=== PATIENT | male | born 1990 | race Caucasian/White ===

== ENCOUNTER → 2017-09-23 | Outpatient (REF) | payer BC ==
[2017-09-23 20:41] LABS: APPEARANCE, URINE CLEAR (CLEAR); BACTERIA, URINE AUTO NEGATIVE (NEGATIVE); BILIRUBIN, URINE AUTO NEGATIVE (NEGATIVE); BLOOD, URINE BLOOD NEGATIVE (NEGATIVE); COLOR, URINE YELLOW (YELLOW); GLUCOSE, URINE (UA) AUTO NEGATIVE (NEGATIVE); KETONE, URINE AUTO NEGATIVE (NEGATIVE); LEUKOCYTE ESTERASE, URINE AUTO TRACE (NEGATIVE); NITRITE, URINE AUTO NEGATIVE (NEGATIVE); PROTEIN, URINE AUTO NEGATIVE (NEGATIVE); RBC, URINE AUTO 2 /HPF (0-3); SPECIFIC GRAVITY URINE AUTO 1.021 (1.002-1.035); SQUAMOUS EPITHELIAL CELL UR AU 0 /HPF (0-6); UROBILINOGEN, URINE AUTO 0.2 mg/dL (0.0-2.0); WBC, URINE AUTO 19 /HPF (0-3)
[2017-09-28 00:06] LABS: Lyme Disease IgG Ab 18 kDa Ban Absent (.); Lyme Disease IgG Ab 23 kDa Ban Absent (.); Lyme Disease IgG Ab 28 kDa Ban Absent (.); Lyme Disease IgG Ab 30 kDa Ban Absent (.); Lyme Disease IgG Ab 39 kDa Ban Absent (.); Lyme Disease IgG Ab 41 kDa Ban Absent (.); Lyme Disease IgG Ab 45 kDa Ban Absent (.); Lyme Disease IgG Ab 58 kDa Ban Present (.); Lyme Disease IgG Ab 66 kDa Ban Absent (.); Lyme Disease IgG Ab 93 kDa Ban Absent (.); Lyme Disease IgG West Blot Int Negative (.); Lyme Disease IgG/IgM Antibodie <0.91 ISR (0.00-0.90); Lyme Disease IgM Ab 23 kDa Ban Absent (.); Lyme Disease IgM Ab 39 kDa Ban Absent (.); Lyme Disease IgM Ab 41 kDa Ban Absent (.); Lyme Disease IgM Ab Quantitati 0.89 index (0.00-0.79); Lyme Disease IgM West Blot Int Negative (.)
== END ==
LOC: M LAB REF 17:20
DX: N39.0 Urinary tract infection, site not specified (principal)
CPT/HCPCS: 81001

== ENCOUNTER 2017-11-11 20:12 | Emergency (ER) | payer BC ==
[2017-11-11] MEDS: LIDOCAINE 1% MDV 20ML VIAL SC (20:42)
[2017-11-11] MEDS: ADACEL/BOOSTRIX VACCINE (DIPHTH/PERTUSS/ACELL/TETANUS)0.5ML SYR (90715) IM (21:15)
== END 2017-11-11 21:28 | disposition home or self-care (01) ==
LOC: M ED 20:12
DX: S61.412A Laceration without foreign body of left hand, initial encounter (principal); W26.0XXA Contact with knife, initial encounter; Y92.59 Other trade areas as the place of occurrence of the external cause; Y99.0 Civilian activity done for income or pay; F17.200 Nicotine dependence, unspecified, uncomplicated; Z79.899 Other long term (current) drug therapy
CPT/HCPCS: 90715

== ENCOUNTER 2017-12-27 14:24 | Emergency (ER) | payer OTHER, BC | END 2017-12-27 16:55 | disposition home or self-care (01) | LOC: M ED 14:24 | DX: S30.22XA Contusion of scrotum and testes, initial encounter (principal); W22.8XXA Striking against or struck by other objects, initial encounter; Y92.59 Other trade areas as the place of occurrence of the external cause; Y99.0 Civilian activity done for income or pay; J45.909 Unspecified asthma, uncomplicated; Z87.891 Personal history of nicotine dependence; Z87.438 Personal history of other diseases of male genital organs; Z79.899 Other long term (current) drug therapy | CPT/HCPCS: 76870 ==

== ENCOUNTER 2019-02-02 23:57 | Emergency (ER) | payer OTHER, BC ==
[~2019-02-02] VITALS: Ht 185.4 cm; Wt 77.3 kg
[~2019-02-02 23:57] MED LIST: NAPR-837 PO; ZANTTAB9 PO
[2019-02-03] MEDS ORDERED: CEPHALEXIN 500 MG CAP PO ONE (01:15)
[2019-02-03] MEDS ORDERED: LIDOCAINE 2% MDV 20 ML VIAL SC ONE (01:15)
[2019-02-03] MEDS ORDERED: KEFL500C17 PO (01:17)
[2019-02-03 01:18] VITALS: BP 109/65
== END 2019-02-03 01:38 | disposition home or self-care (01) ==
LOC: M ED 23:57
DX: S61.210A Laceration without foreign body of right index finger without damage to nail, initial encounter (principal); W26.8XXA Contact with other sharp object(s), not elsewhere classified, initial encounter; Y92.89 Other specified places as the place of occurrence of the external cause; Y99.0 Civilian activity done for income or pay

== ENCOUNTER 2019-09-23 03:22 | Emergency (ER) | payer BC, OTHER ==
[~2019-09-23] VITALS: Ht 185.4 cm; Wt 78.9 kg
[~2019-09-23 03:22] MED LIST changes: +KEFL500C17 PO
[2019-09-23] MEDS ORDERED: IBUP200T45 PO (03:29)
[2019-09-23 04:21] LABS: INFLUENZA A AMPLIFICATION NEGATIVE (NEGATIVE); INFLUENZA B AMPLIFICATION NEGATIVE (NEGATIVE)
[2019-09-23] MEDS ORDERED: KEFL500C17 PO (07:24)
[2019-09-23 08:02] VITALS: BP 128/71
== END 2019-09-23 08:03 | disposition home or self-care (01) ==
LOC: M ED 03:22
DX: J02.9 Acute pharyngitis, unspecified (principal); R50.9 Fever, unspecified; M79.10 Myalgia, unspecified site; F17.210 Nicotine dependence, cigarettes, uncomplicated

== ENCOUNTER 2019-10-09 20:58 | Emergency (ER) | payer BC, SELFPAY ==
[~2019-10-09] VITALS: Ht 185.4 cm; Wt 81.8 kg
[~2019-10-09 20:58] MED LIST changes: +IBUP200T45 PO
[2019-10-09 22:03] LABS: BASO # 0.1 10^3/uL (0.0-0.2); BASO % 0.3 % (0.0-1.0); EOS # 0.2 10^3/uL (0.0-0.5); EOS % 1.3 % (0.0-3.0); HEMATOCRIT 40.6 % (42.0-52.0); LYMPH # 2.2 10^3/uL (1.5-5.0); LYMPH % 14.3 % (24.0-44.0); MEAN CORPUSCULAR HEMOGLOBIN 28.4 pg (27.0-33.0); MEAN CORPUSCULAR VOLUME 88.8 fl (80.0-96.0); MONO # 0.9 10^3/uL (0.0-0.8); MONO % 5.9 % (0.0-5.0); NEUTROPHILS # 11.7 10^3/uL (1.5-8.5); NEUTROPHILS % 77.6 % (36.0-66.0); PLATELET COUNT, AUTOMATED 355 10^3/uL (150-450); RED BLOOD COUNT 4.57 10^6/uL (4.30-6.10); WHITE BLOOD COUNT 15.1 10^3/uL (4.0-10.0)
[2019-10-09 22:25] LABS: ERYTHROCYTE SEDIMENTATION RATE 44 mm/hr (0-15)
[2019-10-09 22:27] LABS: BLOOD UREA NITROGEN 17 MG/DL (7-18); CALCIUM LEVEL 9.3 MG/DL (8.5-10.1); CARBON DIOXIDE LEVEL 32 MEQ/L (21-32); CHLORIDE LEVEL 107 MEQ/L (98-107); CREATININE FOR GFR 1.12 MG/DL (0.70-1.30); GLOMERULAR FILTRATION RATE > 60.0 (>60); GLUCOSE, FASTING 83 MG/DL (70-100); POTASSIUM SERUM 4.2 MEQ/L (3.5-5.1); SODIUM LEVEL 143 MEQ/L (136-145)
[2019-10-09 22:30] LABS: MONO REFLEX EBV COMP NEGATIVE (NEGATIVE)
[2019-10-09] MEDS ORDERED: ISOVUE-370 76% 100ML VIAL (Q9967) As Ordered ONE (22:38)
--- NOTE | 2019-10-09 23:52 | REPVR ---
PROCEDURE INFORMATION: Exam: CT Neck With Contrast Exam date and time: 10/09/2019 10:26 PM Age: 29 years old Clinical indication: Throat pain; Additional info: Swelling to right upper neck, pain x2 weeks TECHNIQUE: Imaging protocol: Computed tomography images of the neck with intravenous contrast. Radiation optimization: All CT scans at this facility use at least one of these dose optimization techniques: automated exposure control; mA and/or kV adjustment per patient size (includes targeted exams where dose is matched to clinical indication); or iterative reconstruction. Contrast material: ISO; Contrast volume: 75 ml; Contrast route: AC; COMPARISON: No relevant prior studies available. FINDINGS: Limitations: Dental amalgam artifact obscures the oral cavity and oral pharynx. Nasopharynx: Unremarkable. Oropharynx: [place] tonsillar enlargement with mild striated enhancement, correlate for tonsillitis. Couple low attenuating areas in the tonsils, larger measuring 7 mm in the anterior right tonsil, phlegmon, but no well-circumscribed rim enhancing fluid collection/abscess. Hypopharynx: Unremarkable Larynx: Unremarkable. Normal epiglottis. Retropharyngeal space: Unremarkable. Submandibular/Parotid glands: Normal. Glands are normal in size. Thyroid: Normal. No enlarged or calcified nodules. Lymph nodes: Mild upper cervical adenopathy, likely reactive. Trachea: Visualized trachea is unremarkable. Lungs: Unremarkable as visualized. Bones/joints: Unremarkable. No acute fracture. Soft tissues: Unremarkable. No significant soft tissue swelling. IMPRESSION: 1. [place] tonsillar enlargement with mild striated enhancement, correlate for tonsillitis. Couple low attenuating areas in the tonsils, larger measuring 7 mm in the anterior right tonsil, phlegmon, but no well-circumscribed rim enhancing fluid collection/abscess. 2. Mild upper cervical adenopathy, likely reactive. Electronically signed by: Chris Ronquillo On 10/09/2019 23:51:42 PM
[2019-10-10] MEDS ORDERED: AUGM875T28 PO (00:16)
[2019-10-10 00:27] VITALS: BP 143/99
[2019-10-10] MEDS ORDERED: AUGMENTIN 875 MG TAB PO ONE (00:30)
--- NOTE | 2019-10-11 19:10 | ED PDOC ---
Post-Departure Follow-Up dr ha faxed formal report of ct neck for fu Charlie Lora MD Oct 11, 2019 19:10
[2019-10-12 00:08] LABS: EBV VIRAL CAPSID AG IgM <36.0 U/mL (0.0-35.9)
== END 2019-10-10 00:30 | disposition home or self-care (01) ==
LOC: M ED 20:58
DX: J03.90 Acute tonsillitis, unspecified (principal); L04.0 Acute lymphadenitis of face, head and neck; F17.210 Nicotine dependence, cigarettes, uncomplicated
CPT/HCPCS: 36415; 70491; 80048; 85025; 85652; 86140; 86308; 86664; 86665; 87880; 99284; Q9967

== ENCOUNTER 2020-01-03 13:20 | Emergency (ER) | payer SELFPAY ==
[~2020-01-03] VITALS: Ht 185.4 cm; Wt 85.2 kg
[~2020-01-03 13:20] MED LIST changes: +AUGM875T28 PO
[2020-01-03] MEDS ORDERED: LIDOCAINE 2% MDV 20ML VIAL SC ONE (13:45)
[2020-01-03] MEDS ORDERED: CEPHALEXIN 500 MG CAP PO ONE (14:45)
[2020-01-03] MEDS ORDERED: NORCO, ANEXSIA 5/325MG TABLET (HYDROcodone/ACETAMINOPHEN) PO ONE (14:45)
[2020-01-03] MEDS ORDERED: KEFL500C17 PO (14:51)
[2020-01-03] MEDS ORDERED: NORC1TAB7 PO (14:51)
[2020-01-03 14:55] VITALS: BP 120/66
--- NOTE | 2020-01-03 15:46 | REP ---
REASON: Trauma to the tip of the right hand, 3rd digit. There has been traumatic amputation of the soft tissue of the tip of the 3rd digit and some of the tuft of the distal phalanx of that digit has also been traumatically removed. 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 Electronically Signed by Sammy Ray DO 01/03/2020 04:31 P
== END 2020-01-03 15:05 | disposition home or self-care (01) ==
LOC: M ED 13:20
DX: S68.122A Partial traumatic metacarpophalangeal amputation of right middle finger, initial encounter (principal); W28.XXXA Contact with powered lawn mower, initial encounter; Y92.007 Garden or yard of unspecified non-institutional (private) residence as the place of occurrence of the external cause; J45.909 Unspecified asthma, uncomplicated

== ENCOUNTER 2023-04-27 19:19 | Emergency (ER) | payer BC, OTHER ==
[~2023-04-27] VITALS: Ht 185.4 cm; Wt 79.8 kg
[~2023-04-27 19:19] MED LIST changes: -IBUP200T45 PO; +IBUP200T46 PO; +NORC1TAB7 PO
[2023-04-27] MEDS ORDERED: KETOROLAC 30 MG/ML 1ML VIAL IV ONE (23:00)
[2023-04-27 23:42] LABS: BASO # 0.1 10^3/uL (0.0-0.2); BASO % 0.7 % (0.0-1.0); EOS # 0.1 10^3/uL (0.0-0.5); EOS % 0.9 % (0.0-3.0); HEMATOCRIT 43.6 % (42.0-52.0); HEMOGLOBIN 14.9 g/dl (13.5-17.5); MEAN CORPUSCULAR HEMOGLOBIN 29.9 pg (27.0-33.0); MEAN CORPUSCULAR HGB CONC 34.2 g/dl (32.0-36.5); MEAN CORPUSCULAR VOLUME 87.4 fl (80.0-96.0); MONO # 0.5 10^3/uL (0.0-0.8); NEUTROPHILS # 3.8 10^3/uL (1.5-8.5); NEUTROPHILS % 51.1 % (36.0-66.0); PLATELET COUNT, AUTOMATED 305 10^3/uL (150-450); RED BLOOD COUNT 4.99 10^6/uL (4.30-6.10); WHITE BLOOD COUNT 7.5 10^3/uL (4.0-10.0)
[2023-04-27 23:57] LABS: BLOOD UREA NITROGEN 22 MG/DL (9-23); CALCIUM LEVEL 10.4 MG/DL (8.5-10.1); CARBON DIOXIDE LEVEL 32 MMOL/L (20-31); CHLORIDE LEVEL 100 MMOL/L (98-107); CREATININE FOR GFR 1.17 MG/DL (0.70-1.30); GLOMERULAR FILTRATION RATE > 60.0 (>60); GLUCOSE, FASTING 92 MG/DL (60-100); POTASSIUM SERUM 3.9 MMOL/L (3.5-5.1); SODIUM LEVEL 139 MMOL/L (136-145)
[2023-04-28] MEDS ORDERED: NORCO, ANEXSIA 5/325MG TABLET (HYDROcodone/ACETAMINOPHEN) PO ONE (00:20)
[2023-04-28 00:52] LABS: GC DNA AMPLIFICATION NEGATIVE (NEGATIVE)
[2023-04-28] MEDS ORDERED: KETO10TAB PO (01:22)
[2023-04-28 01:29] VITALS: BP 124/79; TEMP 96.7; O2SAT 99
== END 2023-04-28 01:31 | disposition home or self-care (01) ==
LOC: M ED 19:19
DX: N50.811 Right testicular pain (principal); I86.1 Scrotal varices; J45.909 Unspecified asthma, uncomplicated; Z87.891 Personal history of nicotine dependence
CPT/HCPCS: 74176; 76870; 80048; 81001; 85025; 87810; 87850; 96374; 99284; J1885

== ENCOUNTER 2023-08-25 20:56 | Emergency (ER) | payer BC ==
[~2023-08-25] VITALS: Ht 185.4 cm; Wt 85.1 kg
[~2023-08-25 20:56] MED LIST changes: +KETO10TAB PO
[2023-08-25 21:38] LABS: BASO # 0.1 10^3/uL (0.0-0.2); EOS # 0.2 10^3/uL (0.0-0.5); EOS % 2.8 % (0.0-3.0); HEMATOCRIT 42.7 % (42.0-52.0); HEMOGLOBIN 14.4 g/dl (13.5-17.5); LYMPH % 28.2 % (24.0-44.0); MEAN CORPUSCULAR HEMOGLOBIN 29.2 pg (27.0-33.0); MEAN CORPUSCULAR HGB CONC 33.7 g/dl (32.0-36.5); MEAN CORPUSCULAR VOLUME 86.6 fl (80.0-96.0); MONO # 0.5 10^3/uL (0.0-0.8); MONO % 6.6 % (2.0-8.0); NEUTROPHILS # 4.3 10^3/uL (1.5-8.5); NEUTROPHILS % 61.1 % (36.0-66.0); PLATELET COUNT, AUTOMATED 364 10^3/uL (150-450); RED BLOOD COUNT 4.93 10^6/uL (4.30-6.10); WHITE BLOOD COUNT 7.1 10^3/uL (4.0-10.0)
[2023-08-25 21:58] LABS: LIPASE 27 U/L (12-53)
[2023-08-25 21:59] LABS: ALBUMIN 4.3 G/DL (3.2-5.2); ALKALINE PHOSPHATASE 138 U/L (46-116); ALT/SGPT 77 U/L (7.0-40); AST/SGOT 33 U/L (<34); BILIRUBIN,DIRECT 0.2 MG/DL (<0.4); BILIRUBIN,TOTAL 0.5 MG/DL (0.3-1.2); BLOOD UREA NITROGEN 17 MG/DL (9-23); CALCIUM LEVEL 9.7 MG/DL (8.5-10.1); CARBON DIOXIDE LEVEL 31 MMOL/L (20-31); CHLORIDE LEVEL 106 MMOL/L (98-107); CREATININE FOR GFR 1.32 MG/DL (0.70-1.30); GLOMERULAR FILTRATION RATE > 60.0 (>60); GLUCOSE, FASTING 88 MG/DL (60-100); POTASSIUM SERUM 4.6 MMOL/L (3.5-5.1); SODIUM LEVEL 142 MMOL/L (136-145); TOTAL PROTEIN 6.9 G/DL (5.7-8.2)
[2023-08-26 03:15] VITALS: BP 128/78; TEMP 98.8; O2SAT 98
== END 2023-08-26 03:19 | disposition home or self-care (01) ==
LOC: M ED 20:56
DX: R10.11 Right upper quadrant pain (principal); F10.10 Alcohol abuse, uncomplicated